=== PATIENT | male | born 1945 | race Caucasian/White ===

== ENCOUNTER 2024-08-08 08:13 | Emergency (ER) | payer MEDICARE, SELFPAY ==
[2024-08-08 08:16] VITALS: BP 130/73; PULSE 80; RESP 18; TEMP 37.1; O2SAT 95; BMI 25.1
--- NOTE | 2024-08-08 08:36 | CT_ITS ---
PROCEDURE INFORMATION: Exam: CT Abdomen And Pelvis With Contrast Exam date and time: 08/08/2024 9:33 AM Age: 79 years old Clinical indication: Abdominal pain; Flank; Left lower quadrant (llq); Additional info: Llq pain to flank TECHNIQUE: Imaging protocol: Computed tomography of the abdomen and pelvis with contrast. Radiation optimization: All CT scans at this facility use at least one of these dose optimization techniques: automated exposure control; mA and/or kV adjustment per patient size (includes targeted exams where dose is matched to clinical indication); or iterative reconstruction. Contrast material: ISOVUE; Contrast volume: 75 ml; Contrast route: IV; COMPARISON: No relevant prior studies available. FINDINGS: Pleural spaces: The patient appears to be status post left pleurodesis. Liver: Normal. No mass. Gallbladder and biliary ducts: Normal. No calcified stones. No ductal dilation. Pancreas: Normal. No ductal dilation. Spleen: Normal. No splenomegaly. Adrenal glands: Normal. No mass. Kidneys and ureters: There is a 3 mm left UVJ stone causing mild left hydroureteronephrosis. Few subcentimeter left renal cysts are identified. The right kidney appears normal. Stomach and bowel: There is no bowel obstruction. There is moderate stool seen throughout the colon. Appendix: No evidence of appendicitis. Intraperitoneal space: Unremarkable. No free air. No significant fluid collection. Vasculature: There is [id number] atherosclerotic disease. There is no abdominal aortic aneurysm. Lymph nodes: Unremarkable. No enlarged lymph nodes. Urinary bladder: Unremarkable as visualized. Reproductive: There is mild prostatomegaly. Bones/joints: Unremarkable. No acute fracture. Soft tissues: There is a right inguinal hernia which contains fat and a short segment of small bowel. There is no obstruction. There is also a fat containing left inguinal hernia. IMPRESSION: 1. 3 mm left UVJ stone causing mild left hydroureteronephrosis. 2. Mild prostatomegaly. 3. Small bowel containing right inguinal hernia without evidence of obstruction. COMMENTS: Consistent with the [employer]'s Incidental Findings Committee white paper (J Am Camille Radiol 2018): Any incidental renal lesion less than 1 cm or classified as too small to characterize, or any incidental cystic renal lesion characterized as simple-appearing, is likely benign. No follow-up imaging is recommended for these lesions per consensus recommendations based on imaging criteria.
[2024-08-08 08:42] LABS: Microscopic, Urine URINE MICROSCOPIC (MICROSCOPIC)
[2024-08-08 08:43] LABS: Appearance,Urine CLEAR (Clear); Bilirubin,Urine Negative (Negative); Blood, Urine 1+ (Negative); Color,Urine YELLOW (Yellow); Glucose,Urine (UA) Negative (Negative); Ketones,Urine Negative (Negative); Leukocyte Esterase,Urine Negative (Negative); Nitrate,Urine Negative (Negative); PH,Urine 5.5 (5.0-8.5); Protein,Urine Negative (Negative); Specific Gravity, Urine >= 1.030 (1.005-1.030); Urobilinogen,Urine 0.2 EU/dl (0.2)
[2024-08-08] MEDS: KETOROLAC 30MG/ML VIAL 15 MG IV (08:54)
[2024-08-08 09:01] VITALS: BP 105/57; PULSE 67; O2SAT 95
[2024-08-08 09:03] LABS: Basophils % 0.2 % (0.1-2.0); Eosinophils % 0.3 % (0.1-12.0); Hematocrit 42.5 % (42.0-52.0); Hemoglobin 14.2 g/dL (14.1-18.0); Lymphocytes # 0.9 K/mm3 (0.7-4.5); Lymphocytes % 7.8 % (10-50); Mean Corpuscular HGB Conc 33.4 g/dL (31.8-35.4); Mean Corpuscular Hemoglobin 31.8 pg (27.0-31.2); Mean Platelet Volume 6.8 fl (7.4-10.4); Monocytes # 0.5 K/mm3 (0.1-1.0); Monocytes % 4.6 % (1.7-9.3); Neutrophils # 9.8 K/mm3 (1.8-7.8); Neutrophils % 87.1 % (37.0-80.0); Platelet Count 272 K/mm3 (142-424); Red Blood Count 4.48 M/mm3 (4.60-6.20); Red Cell Distribution Width 13.3 % (11.5-17.5); White Blood Count 11.3 K/mm3 (4.8-10.8)
[2024-08-08 09:06] LABS: MANUAL DIFFERENTIAL MANUAL DIFFERENTIAL (MANUAL DIFF)
[2024-08-08 09:09] LABS: Alanine Aminotransferase 15 U/L (12-78); Albumin Level 4.5 g/dl (3.5-5.0); Albumin/Globulin Ratio 1.7 (1.1-1.8); Alkaline Phosphatase 120 U/L (38-126); Anion Gap 15.8 mEq/L (5-15); Aspartate Amino Transferase 22 U/L (17-59); Bilirubin,Total 0.5 mg/dl (0.2-1.3); Blood Urea Nitrogen 23 mg/dl (9-20); Calcium 9.7 mg/dl (8.4-10.2); Carbon Dioxide 25 mmol/L (22.0-30.0); Chloride 101 mmol/L (98-107); Creatinine Clearance Estimated 65 mL/min (50-200); Estimated Glomerular Filt Rate 81 ml/min (>60); GFR (African American) 98 ML/MIN (>60); Globulin 2.7 g/dL (1.3-3.2); Glucose 119 mg/dl (74-100); Lipase 77 U/L (23-300); Potassium 4.8 mmoL/L (3.5-5.1); Sodium 137 mmol/L (136-145); Total Protein,Serum 7.2 g/dl (6.3-8.2)
--- NOTE | 2024-08-08 09:09 | ED_ITS ---
Discharge Plan Disposition Chief Complaint: Abdominal Pain Referrals Follow up/Referrals: Provider,Referral, MD [Primary Care Provider] - See instructions Activity Restrictions/Add. Instructions Additional Instructions/Restrictions: You should pass the stone on your own. Call your family doctor to establish care for this visit to the emergency department and schedule follow-up within 48 hours to ensure improvement. If you have any worsening of your condition or any other concerning signs or symptoms, return to the emergency department or your primary care doctor for further evaluation. Take Tylenol 1000 mg every 6 hours (4 times daily) and ibuprofen 400 mg every 6 hours (4 times daily) as needed with food and water to prevent GI upset and kidney damage. Clinical Impressions Clinical Impression: Calcium ureterolithiasis Instructions Patient Instructions: DI for Acute Abdominal Pain Print Language Print Language: Citizen Of [place] Discharge ED Provider: Anand Payton General Adult HPI General Chief complaint: Abdominal Pain Stated complaint: left side pain, lower abd pain Time Seen by Provider: 08/08/24 08:17 Mode of Arrival: Ambulatory Source of Information: Patient Limitations: No Limitations Description of Symptoms (Recalled from ER Triage Doc. by RN): abd pain in LLQ radiates to back, started around 0300. took ibuprofen and lidocaine patch to the back with relief but no abd relief History of Present Illness HPI narrative: Please note that above description of symptoms, in this electronic medical record under categorization of recalled from ER triage doctor by RN are reflective of an initial nursing assessment, however, is not reflective of my full history and physical exam that was personally taken and clarified. Consequentially, this preceding description of symptoms, which may include the patient's categorized chief complaint in the EMR, do not reflect my personal clinical impression, and the ultimate description of history of present illness and patient stated complaints should be deferred to this section of the note. Unless stated otherwise or congruent with this section of the note, additional signs, symptoms, or incongruence should be interpreted as inaccurate with my clinical impression. Related Data Allergies Allergy/AdvReac Type Severity Reaction Status Date / Time No Known Allergies Allergy Verified 08/08/24 08:50 [facility] Disclaimer: The information contained in this section may have been updated after the patient was seen, as this information can be updated by other users. Social History Smoking Status: Current every day smoker alcohol intake: never current occupational status: retired ROS Obtained: Yes All systems reviewed & no additional complaints except as documented Physical Exam General General appearance: alert Head Head exam: atraumatic and normocephalic Eye Eye exam: Present normal appearance, PERRL and EOMI Neck Neck exam: Present normal inspection, full ROM and trachea midline Respiratory Respiratory exam: Absent respiratory distress, wheezes, stridor, accessory muscle use or prolonged expiratory phase Cardiovascular Cardiovascular exam: Present regular rate, normal rhythm and other (Pulses equal symmetric in upper and lower extremities) Abdominal Exam Abdominal exam: Present soft; Absent distention, tenderness, guarding, rebound or pulsatile mass Extremities Exam Extremities exam: Absent edema Back Exam Back exam: Absent CVA tenderness (R) or CVA tenderness (L) Neurological Exam Neurological exam: Present alert, oriented X3 and CN II-XII intact; Absent motor sensory deficit Skin Skin exam: Present warm and dry; Absent diaphoresis or erythema Medical Decision Making Medical Records Medical records reviewed: Yes I reviewed the patient's medical records. Screening: Per USPSTF and CDC recommendations, given the prevalence of disease in our region, it is our hospital?s policy to screen for HIV and viral Hepatitis for all patients aged 18 and over and those with ongoing risk factors. Shree Inquiry Pt receiving controlled substance: No Shree was queried for this patient: No Vital Signs: 08/08/24 08:16 08/08/24 09:01 08/08/24 09:30 Temperature 98.8 F Temperature Source Oral Pulse Rate 67 64 Pulse Rate [Left Brachial] 80 Respiratory Rate 18 Blood Pressure 105/57 L 135/67 Blood Pressure [Left Arm] 130/73 Blood Pressure Mean [Left Arm] 92 02 Sat by Pulse Oximetry 95 95 94 L Oxygen Delivery Method Room Air 08/08/24 10:00 08/08/24 10:30 Temperature Temperature Source Pulse Rate 57 L 60 Pulse Rate [Left Brachial] Respiratory Rate Blood Pressure 118/50 L 114/56 L Blood Pressure [Left Arm] Blood Pressure Mean [Left Arm] 02 Sat by Pulse Oximetry 95 95 Oxygen Delivery Method Lab Data Lab Results 08/08/24 08:31: Urine Color Yellow, Urine Appearance Clear, Urine pH 5.5, Ur Specific [place] >= 1.030, Urine Protein Negative, Urine Glucose (UA) Negative, Urine Ketones Negative, Urine Blood 1+ A, Urine Nitrate Negative, Urine Bilirubin Negative, Urine Urobilinogen 0.2, Ur Leukocyte Esterase Negative, Urine RBC 3-5, Urine WBC None, Ur Squamous Epith Cells None, Urine Bacteria None 08/08/24 08:46: WBC 11.3 H, RBC 4.48 L, Hgb 14.2, Hct 42.5, MCV 95.0 H, MCH 31.8 H, MCHC 33.4, RDW 13.3, Plt Count 272, MPV 6.8 L, Neut % (Auto) 87.1 H, Lymph % (Auto) 7.8 L, Ashley % (Auto) 4.6, Eos % (Auto) 0.3, Baso % (Auto) 0.2, Neut # (Auto) 9.8 H, Lymph # (Auto) 0.9, Ashley # (Auto) 0.5, Eos # (Auto) 0.0, Baso # (Auto) 0.0, Total Counted 100, Neutrophils % (Manual) 85 H, Lymphocytes % (Manual) 12, Monocytes % (Manual) 3, Platelet Estimate Normal, RBC Morphology Normal, Sodium 137, Potassium 4.8, Chloride 101, Carbon Dioxide 25, Anion Gap 15.8 H, BUN 23 H, Creatinine 0.90, Estimated Creat Clear 65, Estimated GFR 81, Est GFR ( Amer) 98, Glucose 119 H, Lactate 1.1, Calcium 9.7, Total Bilirubin 0.5, AST 22, ALT 15, Alkaline Phosphatase 120, Total Protein 7.2, Albumin 4.5, Globulin 2.7, Albumin/Globulin Ratio 1.7, Lipase 77 08/08/24 08:46 08/08/24 08:46 Orders (Tests/Meds): ED MEDICATIONS Generic Name Dose Route Start Last Admin Trade Name Freq PRN Reason Stop Dose Admin Sodium Chloride 10 ml 08/08/24 09:47 08/08/24 09:47 Sodium Chloride 0.9% 10ml Syr (Rad Only) IV 09/07/24 09:46 10 ml NEEDED PRN Administration Maintain IV Site Discontinued Medications Generic Name Dose Route Start Last Admin Trade Name Freq PRN Reason Stop Dose Admin Iopamidol 75 ml 08/08/24 09:47 08/08/24 09:47 Iopamidol-370 (76%);100ml Bottle IV 08/08/24 09:48 75 ml ONCE ONE Administration Ketorolac Tromethamine 15 mg 08/08/24 08:36 08/08/24 08:54 Ketorolac 30mg/Ml Vial IV 08/08/24 08:37 15 mg ONCE ONE Administration ORDERS Category Date Time Status CT abdomen pelvis w con Stat Cat Scan 08/08/24 08:36 Completed CBC w/Auto Diff [Complete Blood Count Auto Diff] Stat Lab 08/08/24 08:46 Completed CMP [Comprehensive Metabolic Panel] Stat Lab 08/08/24 08:46 Completed Lactic Acid Stat Lab 08/08/24 08:46 Completed Lipase Stat Lab 08/08/24 08:46 Completed UA [Urinalysis and Microscopic] Stat Lab 08/08/24 08:31 Completed Medical Decision Narrative: 79-year-old male history of hyperlipidemia, BPH presenting with abdominal pain. Patient states that he started having abdominal pain/flank pain on the left side this morning 08/08 around 3 AM. States that initially started in his left flank, now radiating down into the left side of his abdomen and left lower quadrant. No dysuria, hematuria, blood in the stool, no testicular tenderness or any other relevant symptoms. He states that his last bowel movement was yesterday, he usually has a bowel movement once every 1 to 3 days. Soft, did not require straining, yesterday's bowel movement was normal. Patient has no other acute complaints at this time. States that the pain is crampy, responsive to Tylenol and Motrin. Currently 5 out of 10. Made better with laying on his right side, made worse with lying on his left. Patient has never had a colonoscopy. History was obtained via conversation with patient and family. On arrival, patient hemodynamically stable, alert, oriented x4, appropriate, GCS 15, moving all extremities spontaneously, pupils equal and reactive to light. Full physical exam performed and significant for well-appearing male no acute distress. Does not appear to be in any discomfort. His abdomen is soft, nontender, nondistended. No overlying skin changes. He does have lidocaine patch in his left lower quadrant and left flank. Negative Whittaker sign, negative McBurney's point tenderness. No overlying rash. Differential includes nephrolithiasis, UTI, diverticulitis, malignancy, enteritis, gastritis, pancreatitis, mesenteric ischemia, among others. Patient placed on continuous cardiac monitoring and continuous pulse ox with initial blood pressure 130/73, heart rate 80, saturation 95% on room air. Patient was given Toradol IV for symptomatic management and correction of underlying abnormalities. Workup independently interpreted and significant for leukocytosis 11.3 with neutrophilic predominance. Hemoglobin normal at 14.2, platelets normal at 272. Urinalysis with isolated blood.. On independent interpretation of imaging, small left-sided ureteral stone with mild upstream hydronephrosis. See radiology read for full review of final results. On reevaluation, patient resting comfortably. Given patient presentation, workup, history, this most likely represents left ureterolithiasis. Because patient at baseline without signs or symptoms of clinical decompensation, deemed appropriate for discharge. Results were relayed to patient who voiced understanding and were agreeable to outpatient management and follow up. I discussed my clinical impression with patient and answered all questions. At this time, the evidence for any other entities in the differential is insufficient to warrant any further testing or ED observation. This was explained as well. Advisory was given that persistent or worsening symptoms require further evaluation. I confirmed the understanding of this discussion. [employer] disclaimer Much of this encounter note is an electronic shipfitters supervisor spoken language to printed text. Electronic shipfitters supervisor of the spoken language may permit errors. Although I have reviewed the note, some errors may still exist. Critical Care Critical Care Time Critical Care Time: No
[2024-08-08 09:15] LABS: Lactic Acid 1.1 mmol/L (0.7-2.1)
[2024-08-08 09:30] VITALS: BP 135/67; PULSE 64; O2SAT 94
[2024-08-08 09:30] LABS: Lymphocytes % 12 % (10-50); Monocytes % 3 % (2-9); Neutrophils % 85 % (42-76); Platelet Estimate Normal; RBC Morphology Normal; Total Cells Counted 100
[2024-08-08] MEDS: IOPAMIDOL-370 (76%);100ML BOTTLE 75 ML IV (09:47)
[2024-08-08] MEDS: SODIUM CHLORIDE 0.9% 10ML SYR (RAD ONLY) 10 ML IV (09:47)
[2024-08-08 10:00] VITALS: BP 118/50; PULSE 57; O2SAT 95
[2024-08-08 10:30] VITALS: BP 114/56; PULSE 60; O2SAT 95
[2024-08-08 11:25] VITALS: BP 122/61; PULSE 66; RESP 18; TEMP 36.5; O2SAT 95
== END 2024-08-08 11:27 | disposition home or self-care (01) ==
PROVIDERS: Emergency Provider Emergency Medicine
DX: R10.32 Left lower quadrant pain (principal); M54.9 Dorsalgia, unspecified; N20.1 Calculus of ureter
CPT/HCPCS: 74177; 80053; 81001; 83605; 83690; 85007; 85025; 85027; 96374; 99285; J1885; Q9967